=== PATIENT | male | born 2000 | race Caucasian/White ===

== ENCOUNTER 2022-01-13 14:27 | Observation (INO) ==
[2022-01-13 15:48] LABS: Alanine Aminotransferase 26 U/L (7-52); Albumin Globulin Ratio 1.3 (0.9-2); Albumin Level 5.2 gm/dl (3.4-5.0); Alkaline Phosphatase 86 U/L (34-104); Anion Gap 15 (3-11); BUN Creatinine Ratio 14.3 (10-20); Bilirubin,Total 0.7 mg/dl (0.2-1.0); Blood Urea Nitrogen 18 mg/dl (6-23); Calcium 10.6 mg/dl (8.5-10.1); Carbon Dioxide 23 mmol/L (21-32); Chloride 98 mmol/L (98-107); Creatinine Clr Calc Pharmacy 114.7 ml/min; Est GFR (African American) 93.9 ml/min; Glucose 82 mg/dl (70-99(Fasting)); Sodium 136 mmol/L (136-145); Total Protein 9.2 gm/dl (6.0-8.3); Troponin I High Sensitivity 2.9 pg/ml (0-20)
--- NOTE | 2022-01-13 16:05 | XRay Report ---
XR chest 2V PA/lateral HISTORY: Atypical Chest Pain COMPARISON: None. FINDINGS: The lungs are clear. Cardiac silhouette is normal in size. No pleural effusions. No pneumot horax. IMPRESSION: No acute process. ACT 112: Negative or not required by law. Electronically signed by: Rl Mitchell M.D. 01/13/2022 4:04 PM
[2022-01-13 16:17] LABS: Hemoglobin 16.8 g/dl (14.0-18.0); Mean Corpuscular Hemoglobin 30.3 pg (25.0-34.0); Mean Corpuscular Volume 86.5 fL (80.0-100.0); Platelet Count 321 K/uL (130-400); RDW Coefficient of Variation 11.3 % (11.5-14.5); RDW Standard Deviation 35.7 fL (36.4-46.3); Red Blood Count 5.55 M/uL (4.63-6.08)
[2022-01-13] MEDS ORDERED: SODIUM CHLORIDE 0.9% 1000ML 2,000 ML IV ONE (16:20)
--- NOTE | 2022-01-13 16:24 | Emergency Department Note ---
Impression & Plan Tachycardia, Chest pain ED Provider Note NAME: ARIANNE CHAUDHRY AGE: 21 SEX: M : 2000 ARRIVES VIA: Walk-In INFORMANT: Patient ED PROVIDER(S): Jeevan Pierre DO CHIEF COMPLAINT: chest pain HPI: Patient is a 21-year-old male who presents the ER for elevated heart rate. Patient notes that he has had chest tightness which has been present for the past 2 weeks. It is generally after sleeping for a long time but always resolved in the morning. Male has been having constant pain every time he wakes up throughout the day. Today has been constant since 12 as well as yesterday. Denies any shortness of breath arm or jaw pain. No belly pain, nausea, vom iting, or diarrhea. He notes it is a little worse with sitting up in the chair and improves with lying a little bit reclined. Pain is currently a 2 out of 10. He has never had this before. No other exacerbating or remitting factors. Patient denies diabetes, hypertension, hyperlipidemia, CAD, history of sudden at a young age, and smoking. Patient denies swelling of calves, recent trips, history of immobilization or recent surgery, prior history of DVT, hemoptysis, history of malignancy. Family history of an aunt having an IA at the age of 40. Symptoms do improve when he is up and moving around. ROS: See above HPI for pertinent positives & negatives. A total of 10 systems reviewed and were otherwise negative. PAST MEDICAL HISTORY:See Below PAST SURGICAL HISTORY:See Below FAMILY HISTORY:See Below SOCIAL HISTORY:See Below HOME MEDICATIONS:See Below ALLERGIES:See Below VITALS:See Below PHYSICAL EXAMINATION: GENERAL: Sitting up in bed, alert, well appearing, well nourished, no distress, non-toxic EYE EXAM: normal conjunctiva. PERRL and EOM's grossly intact. OROPHARYNX: no exudate, no erythema, lips, buccal mucosa, and tongue normal and mucous membranes are moist NECK: supple, no nuchal rigidity, no adenopathy, non-tender LUNGS: Clear to auscultation. Normal chest wall mechanics HEART: no murmurs, S1 normal and S2 normal ABDOMEN: abdomen soft, non-tender, normo-active bowel sounds, no masses, no rebound or guarding. UPPER EXTREMITIES: upper extremities are grossly normal. LOWER EXTREMITIES: No pitting edema. Calves are equal bilateral NEURO EXAM: Normal sensorium, cranial nerves II-XII grossly intact, normal speech, no gross weakness of arms, no gross weakness of legs. MEDICAL DECISION MAKING: Patient is a 21-year-old male who presents ER for above-stated complaint. He notes chest pain and palpitations that have been present for nearly 24 hours. IV was established blood work was obtained. Labs show a mild leukocytosis of 14 ,000. No significant anemia. INR unremarkable. D-dimer negative. BMP along LFTs bilirubin was unremarkable. TSH was normal. Troponin was negative. COVID was negative. He has no other complaints at this time. No signs or source of infection. Chest x-ray was clean. He was given 2 L of IV fluids. Heart rate stayed persistently in the 1 teens. Patient was updated at bedside. With the persistent tachycardia and symptoms did discuss with the hospitalist for further observation. Triage Nursing notes reviewed. Limited review of prior medical records performed Vital Signs: reviewed and remarkable for tachy Differential diagnosis: Cardiac ischemia, aortic dissection, pulmonary embolism, pneumothorax, pneumonia, pericarditis, myocarditis, esophageal rupture, GERD, cholecystitis, pancreatitis, musculoskeletal, as well as other pathologies. ER treatment provided: See below Diagnostics interpreted by me: ECG: Sinus tachycardia rate of 139 Normal axis No PVCs QTC 429 Cardiac Monitoring: An order was placed for continuous cardiac monitoring. The monitor shows a rate of 120 with sinus rhythm. Laboratory studies: As stated above and show below. Imaging studies: Portable AP upright 1 view of the chest unremarkable Consultation(s): Discussed with Rhonda Whiting for further evaluation Procedures: none Critical Care: None Past Med/Surg History Social History Smoking Status: Never smoker Hx Alcohol Use: No Hx Substance Use: No Preferred Language: Upper Sorbian Communication Ability: Effective Mule Operator Required: No Beliefs That Will Affect Care: None Current Living Situation: Other Current Living Situation Comment: Roommates Feels Safe at Home: Yes Assistive Devices: None Results & Data (ED) Vital Signs Vital Signs - 24 hr 01/13/22 14:49 01/13/22 16:25 01/13/22 16:25 Temperature 37.4 C Temperature Source Temporal Artery Scan Pulse Rate 126 H Pulse Rate [Apical] 128 H Pulse Rhythm Regular Pulse Rhythm [Apical] Pulse Strength Normal Pulse Strength [Apical] Respiratory Rate 18 18 Respiratory Effort / Characteristics Non-Labored Spontaneous Non-Labored Spontaneous Respiratory Depth Normal Normal Respiratory Pattern Regular Regular Blood Pressure 131/82 Blood Pressure [Left Arm] 128/90 Blood Pressure Mean 98 Blood Pressure Mean [Left Arm] 102 Blood Pressure Position Sitting Blood Pressure Position [Left Arm] Semi-fowlers Pulse Oximetry 97 99 99 Oxygen Delivery Method Room Air Room Air Room Air Sepsis Recent Fever Within 48 Hours No Sepsis New/Unexplained Change in Mental Status No Sepsis Action Taken by Nursing No Action Required 01/13/22 17:09 01/13/22 18:06 01/13/22 19:00 Temperature Temperature Source Pulse Rate 116 H Pulse Rate [Apical] 113 H 107 H Pulse Rhythm Pulse Rhythm [Apical] Regular Pulse Strength Pulse Strength [Apical] Normal Respiratory Rate 18 18 18 Respiratory Effort / Characteristics Non-Labored Spontaneous Non-Labored Respiratory Depth Normal Normal Respiratory Pattern Regular Regular Blood Pressure 152/88 H Blood Pressure [Left Arm] 127/88 133/86 Blood Pressure Mean 109 Blood Pressure Mean [Left Arm] 101 101 Blood Pressure Position Blood Pressure Position [Left Arm] Lying Pulse Oximetry 99 100 99 Oxygen Delivery Method Room Air Room Air Room Air Sepsis Recent Fever Within 48 Hours Sepsis New/Unexplained Change in Mental Status Sepsis Action Taken by Nursing Laboratory Data Result diagrams: 01/13/22 16:04 01/13/22 15:59 Lab Results 01/13/22 01/13/22 01/13/22 Range/Units 14:59 14:59 14:59 WBC Cancelled RBC Cancelled Hgb Cancelled Hct Cancelled MCV Cancelled MCH Cancelled MCHC Cancelled RDW Std Deviation Cancelled RDW Coeff of Charlene Cancelled Plt Count Cancelled MPV Cancelled Immature Gran % (Auto) Cancelled Neut % (Auto) Cancelled Lymph % (Auto) Cancelled [place] % (Auto) Cancelled Eos % (Auto) Cancelled Baso % (Auto) Cancelled Neut # (Auto) Cancelled Lymph # (Auto) Cancelled [place] # (Auto) Cancelled Eos # (Auto) Cancelled Baso # (Auto) Cancelled Immature Gran # (Auto) Cancelled Absolute Nucleated RBC Cancelled Nucleated RBC % (auto) Cancelled Neutrophils % (Manual) Cancelled Band Neutrophils % Cancelled Lymphocytes % (Manual) Cancelled Prolymphocyte % Cancelled Reactive Lymphs % (Man) Cancelled Monocytes % (Manual) Cancelled Eosinophils % (Manual) Cancelled Basophils % (Manual) Cancelled Metamyelocytes % (Man) Cancelled Myelocytes % (Man) Cancelled Promyelocytes % (Man) Cancelled Blast Cells % (Manual) Cancelled Plasma Cell % (Manual) Cancelled Other Cells % Cancelled Nucleated RBC % Cancelled Neutrophils # (Manual) Cancelled Band Neutrophils # Cancelled Total Absolute Neuts Cancelled Lymphocytes # (Manual) Cancelled Prolymphocyte # Cancelled Reactive Lymphs # Cancelled Total Abs Lymphocytes Cancelled Monocytes # (Manual) Cancelled Eosinophils # (Manual) Cancelled Basophils # (Manual) Cancelled Metamyelocytes # (Man) Cancelled Myelocytes # (Manual) Cancelled Promyelocytes # (Man) Cancelled Blast Cells # (Man) Cancelled Plasma Cell # (Manual) Cancelled Other Cells # Cancelled Nucleated RBCs # (Man) Cancelled Hypersegmented Neuts Cancelled Hyposegmented Neuts Cancelled Hypogranular Neuts Cancelled Large Granular Lymphs Cancelled # Lrg Granular Lymphs Cancelled Hairy Cells Cancelled Smudge Cells Cancelled Toxic Granulation Cancelled Toxic Vacuolation Cancelled Dohle Bodies Cancelled Pattie Rods Cancelled Platelet Estimate Cancelled Hypogranular Platelets Cancelled Clumped Platelets Cancelled Giant Platelets Cancelled Platelet Satelliting Cancelled RBC Morphology Cancelled Polychromasia Cancelled Hypochromasia Cancelled Poikilocytosis Cancelled Basophilic Stippling Cancelled Anisocytosis Cancelled Microcytosis Cancelled Macrocytosis Cancelled Spherocytes Cancelled Pappenheimer Bodies Cancelled Sickle Cells Cancelled Target Cells Cancelled Tear Drop Cells Cancelled Ovalocytes Cancelled Stomatocytes Cancelled [place] Bodies Cancelled Echinocytes Cancelled Acanthocytes (Spur) Cancelled Rouleaux Cancelled RBC Agglutinates Cancelled Schistocytes Cancelled Sezary Cell Cancelled PT Cancelled INR Cancelled APTT Cancelled PTT Ratio Cancelled D-Dimer Cancelled Sodium 136 (136-145) mmol/L Potassium TNP Chloride 98 (98-107) mmol/L Carbon Dioxide 23 (21-32) mmol/L Anion Gap 15 H (3-11) BUN 18 (6-23) mg/dl Creatinine 1.26 (0.6-1.4) mg/dl Est Cr Clr Drug Dosing 114.7 ml/min Est GFR ( Amer) 93.9 ml/min Est GFR (Non-Af Amer) 81.0 ml/min BUN/Creatinine Ratio 14.3 (10-20) Glucose 82 (70-99(Fasting)) mg/dl Calcium 10.6 H (8.5-10.1) mg/dl Total Bilirubin 0.7 (0.2-1.0) mg/dl AST TNP ALT 26 (7-52) U/L Alkaline Phosphatase 86 (34-104) U/L Troponin I High Sens 2.9 (0-20) pg/ml Total Protein 9.2 H (6.0-8.3) gm/dl Albumin 5.2 H (3.4-5.0) gm/dl Globulin 4.0 (2.5-4.0) gm/dl Albumin/Globulin Ratio 1.3 (0.9-2) TSH (0.300-4.500) uIu/ml SARS-CoV-2, RNA, NAAT (NEGATIVE) Blood Parasites ID Cancelled 01/13/22 01/13/22 01/13/22 Range/Units 15:59 15:59 16:04 WBC 14.60 H RBC 5.55 Hgb 16.8 Hct 48.0 MCV 86.5 MCH 30.3 MCHC 35.0 RDW Std Deviation 35.7 L RDW Coeff of Charlene 11.3 L Plt Count 321 MPV 9.0 L Immature Gran % (Auto) 0.3 Neut % (Auto) 90.4 Lymph % (Auto) 4.4 [place] % (Auto) 4.7 Eos % (Auto) 0.0 Baso % (Auto) 0.2 Neut # (Auto) 13.21 H Lymph # (Auto) 0.64 L [place] # (Auto) 0.68 Eos # (Auto) 0.00 Baso # (Auto) 0.03 Immature Gran # (Auto) 0.04 H Absolute Nucleated RBC Nucleated RBC % (auto) Neutrophils % (Manual) Band Neutrophils % Lymphocytes % (Manual) Prolymphocyte % Reactive Lymphs % (Man) Monocytes % (Manual) Eosinophils % (Manual) Basophils % (Manual) Metamyelocytes % (Man) Myelocytes % (Man) Promyelocytes % (Man) Blast Cells % (Manual) Plasma Cell % (Manual) Other Cells % Nucleated RBC % Neutrophils # (Manual) Band Neutrophils # Total Absolute Neuts Lymphocytes # (Manual) Prolymphocyte # Reactive Lymphs # Total Abs Lymphocytes Monocytes # (Manual) Eosinophils # (Manual) Basophils # (Manual) Metamyelocytes # (Man) Myelocytes # (Manual) Promyelocytes # (Man) Blast Cells # (Man) Plasma Cell # (Manual) Other Cells # Nucleated RBCs # (Man) Hypersegmented Neuts Hyposegmented Neuts Hypogranular Neuts Large Granular Lymphs # Lrg Granular Lymphs Hairy Cells Smudge Cells Toxic Granulation Toxic Vacuolation Dohle Bodies Pattie Rods Platelet Estimate Hypogranular Platelets Clumped Platelets Giant Platelets Platelet Satelliting RBC Morphology Polychromasia Hypochromasia Poikilocytosis Basophilic Stippling Anisocytosis Microcytosis Macrocytosis Spherocytes Pappenheimer Bodies Sickle Cells Target Cells Tear Drop Cells Ovalocytes Stomatocytes [place] Bodies Echinocytes Acanthocytes (Spur) Rouleaux RBC Agglutinates Schistocytes Sezary Cell PT INR APTT PTT Ratio D-Dimer Sodium (136-145) mmol/L Potassium 4.3 Chloride (98-107) mmol/L Carbon Dioxide (21-32) mmol/L Anion Gap (3-11) BUN (6-23) mg/dl Creatinine (0.6-1.4) mg/dl Est Cr Clr Drug Dosing ml/min Est GFR ( Amer) ml/min Est GFR (Non-Af Amer) ml/min BUN/Creatinine Ratio (10-20) Glucose (70-99(Fasting)) mg/dl Calcium (8.5-10.1) mg/dl Total Bilirubin (0.2-1.0) mg/dl AST 20 ALT (7-52) U/L Alkaline Phosphatase (34-104) U/L Troponin I High Sens (0-20) pg/ml Total Protein (6.0-8.3) gm/dl Albumin (3.4-5.0) gm/dl Globulin (2.5-4.0) gm/dl Albumin/Globulin Ratio (0.9-2) TSH 1.830 (0.300-4.500) uIu/ml SARS-CoV-2, RNA, NAAT (NEGATIVE) Blood Parasites ID 01/13/22 01/13/22 01/13/22 Range/Units 16:04 17:40 19:16 WBC RBC Hgb Hct MCV MCH MCHC RDW Std Deviation RDW Coeff of Charlene Plt Count MPV Immature Gran % (Auto) Neut % (Auto) Lymph % (Auto) [place] % (Auto) Eos % (Auto) Baso % (Auto) Neut # (Auto) Lymph # (Auto) [place] # (Auto) Eos # (Auto) Baso # (Auto) Immature Gran # (Auto) Absolute Nucleated RBC Nucleated RBC % (auto) Neutrophils % (Manual) Band Neutrophils % Lymphocytes % (Manual) Prolymphocyte % Reactive Lymphs % (Man) Monocytes % (Manual) Eosinophils % (Manual) Basophils % (Manual) Metamyelocytes % (Man) Myelocytes % (Man) Promyelocytes % (Man) Blast Cells % (Manual) Plasma Cell % (Manual) Other Cells % Nucleated RBC % Neutrophils # (Manual) Band Neutrophils # Total Absolute Neuts Lymphocytes # (Manual) Prolymphocyte # Reactive Lymphs # Total Abs Lymphocytes Monocytes # (Manual) Eosinophils # (Manual) Basophils # (Manual) Metamyelocytes # (Man) Myelocytes # (Manual) Promyelocytes # (Man) Blast Cells # (Man) Plasma Cell # (Manual) Other Cells # Nucleated RBCs # (Man) Hypersegmented Neuts Hyposegmented Neuts Hypogranular Neuts Large Granular Lymphs # Lrg Granular Lymphs Hairy Cells Smudge Cells Toxic Granulation Toxic Vacuolation Dohle Bodies Pattie Rods Platelet Estimate Hypogranular Platelets Clumped Platelets Giant Platelets Platelet Satelliting RBC Morphology Polychromasia Hypochromasia Poikilocytosis Basophilic Stippling Anisocytosis Microcytosis Macrocytosis Spherocytes Pappenheimer Bodies Sickle Cells Target Cells Tear Drop Cells Ovalocytes Stomatocytes [place] Bodies Echinocytes Acanthocytes (Spur) Rouleaux RBC Agglutinates Schistocytes Sezary Cell PT 11.6 INR 1.1 APTT 28.0 PTT Ratio 1.0 D-Dimer < 190 Sodium (136-145) mmol/L Potassium Chloride (98-107) mmol/L Carbon Dioxide (21-32) mmol/L Anion Gap (3-11) BUN (6-23) mg/dl Creatinine (0.6-1.4) mg/dl Est Cr Clr Drug Dosing ml/min Est GFR ( Amer) ml/min Est GFR (Non-Af Amer) ml/min BUN/Creatinine Ratio (10-20) Glucose (70-99(Fasting)) mg/dl Calcium (8.5-10.1) mg/dl Total Bilirubin (0.2-1.0) mg/dl AST ALT (7-52) U/L Alkaline Phosphatase (34-104) U/L Troponin I High Sens 3.4 (0-20) pg/ml Total Protein (6.0-8.3) gm/dl Albumin (3.4-5.0) gm/dl Globulin (2.5-4.0) gm/dl Albumin/Globulin Ratio (0.9-2) TSH (0.300-4.500) uIu/ml SARS-CoV-2, RNA, NAAT NEGATIVE (NEGATIVE) Blood Parasites ID Administered Medications Discontinued Medications Sodium Chloride (Nss 1000ml) 2,000 mls @ 999 mls/hr IV .Q2H1M ONE Stop: 01/13/22 18:20 Last Infusion: 01/13/22 18:41 Dose: 0 mls/hr Documented By: Admin: 01/13/22 16:40 Dose: 999 mls/hr Documented By: AMIE Imaging Data Radiologist's Impression: Chest X-Ray 01/13/22 14:52 XR chest 2V PA/lateral HISTORY: Atypical Chest Pain COMPARISON: None. FINDINGS: The lungs are clear. Cardiac silhouette is normal in size. No pleural effusions. No pneumothorax. IMPRESSION: No acute process. ACT 112: Negative or not required by law. Electronically signed by: Rl Mitchell M.D. 01/13/2022 4:04 PM Discharge Plan Visit Data Chief Complaint: Chest Pain Stated Complaint: CHEST PAIN, HIGH HEART RATE ED Provider: Jeevan Pierre Discharge Problem: Tachycardia, Chest pain Patient Disposition: Admitted As Inpatient Discharge Instructions Interventions: ED Discharge Assessment Last Done: 01/13/22 21:22
[2022-01-13 16:29] LABS: D Dimer < 190 ug/L FEU (0-500); INR 1.1 (0.9-1.1); Prothrombin Time 11.6 Seconds (9.0-12.0)
[2022-01-13 16:34] LABS: Potassium 4.3 mmol/L (3.5-5.1)
[2022-01-13 16:38] LABS: Basophils # (auto) 0.03 K/uL (0-0.2); Basophils % (auto) 0.2 %; Immature Granulocytes # (auto) 0.04 K/uL (0.00-0.02); Immature Granulocytes % (auto) 0.3 %; Lymphocytes # (auto) 0.64 K/uL (1.2-3.4); Lymphocytes % (auto) 4.4 %; Monocytes # (auto) 0.68 K/uL (0.24-0.82); Monocytes % (auto) 4.7 %; Neutrophils # (auto) 13.21 K/uL (1.4-6.5); Neutrophils % (auto) 90.4 %
--- NOTE | 2022-01-13 19:44 | Electrocardiogram Report ---
Test Reason : Blood Pressure : / mmHG Vent. Rate : 139 BPM Atrial Rate : 139 BPM P-R Int : 116 ms QRS Dur : 084 ms QT Int : 282 ms P-R-T Axes : 049 042 022 degrees QTc Int : 429 ms Sinus tachycardia Possible Left atrial enlargement Borderline ECG No previous ECGs available Confirmed by Fredo Nunez ([id number]) on 01/13/2022 7:43:49 PM Referred By: Confirmed By:Emeka Nunez
--- NOTE | 2022-01-13 20:08 | History & Physical Report ---
Date of Service January 13, 2022 Assessment & Plan (1) Tachycardia: Plan: 21yo male with no significant past medical or surgical history presenting with substernal chest discomfort and tachycardia. Etiology uncertain at this time. Suspect anxiety is playing a part. Troponin x 2 unremarkable. EKG with sinus tachycardia. Electrolytes largely normal. TSH WNL. -Observation to medical with telemetry -Check Mg -Continue hydration - LR at 125mL/hr x 2 liters -Check 2D echo -Patient may benefit from outpatient cardiac monitoring History of Present Illness Chief Complaint: tachycardia Primary Care Provider: NO PCP Wili Villalba is a pleasant 21yo male with no significant past medical or surgical history presenting with chest discomfort. He has been having substernal chest pressure and discomfort over the last two weeks. He mostly notices it in the morning after waking and it improves throughout the day. The discomfort has acutely worsened over the last two days. It does not appear to be exertional or positional. No pleuritic component. Patient noted palpitations this morning and had an elevated heart rate in the 140's. He also had some nausea and vomiting as well as diarrhea this AM. He did not have breakfast this AM due to not feeling well. He was seen at Urgent Care and subsequently sent to the ER. In the ER he has been sinus tachycardia, sustained 116 - 140. During my encounter his HR was appx 126. Patient does admit to some anxiety, especially when it comes to potential health issues. He has never taken anything for anxiety. He denies fever but had some chills this morning. He has some mild shortness of breath and a slight cough. He denies recent illness or vaccinations. He does not smoke. He drinks sparingly. No recreational drug use. No supplements or OTC medications. Patient recently discontinued his caffeine use. He was previously drinking 4-5 sodas daily but stopped approximately 4 days ago. He has felt very tired since stopping caffeine. Past Med/Surg History Social History Smoking Status: Never smoker Preferred Language: Greenlandic Feels Safe at Home: Yes Review of Systems Review of Systems: All systems reviewed & are unremarkable except as noted in HPI & below Physical Exam Physical Exam: General: patient resting comfortably, NAD, non-toxic in appearance, AA&O x 4 Skin: warm, dry, intact, no rashes or lesions HEENT: NC/AT, PERRL, EOMI, anicteric sclera, conjunctiva without injection, external ear normal to inspection and nontender, nares patent, moist mucus membranes, dentition intact, no oropharyngeal lesions, neck supple, trachea midline, no LAD, no thyromegaly, no JVD Heart: +S1/S2, regular, tachycardic, no m/r/g Lungs: equal air entry bilaterally, no rales/rhonchi/wheezes Abd: +BS, soft, NT/ND, no masses/organomegaly/ascites Ext: warm, 2+ pulses in UE/LE bilaterally, no clubbing/cyanosis or edema Neuro: nonfocal, patient AA&O x 4, speech intact, no facial droop, moving all extremities on command with equal strength 5/5 Results & Data Results & Data ([facility]) Vital Signs (Past 12 Hours) Vital Signs Temp Pulse Pulse Resp BP BP Pulse Ox 01/13/22 19:00 107 H 18 133/86 99 01/13/22 18:06 116 H 18 152/88 H 100 01/13/22 17:09 113 H 18 127/88 99 01/13/22 16:25 99 01/13/22 16:25 128 H 18 128/90 99 01/13/22 14:49 37.4 C 126 H 18 131/82 97 O2 Del Method 01/13/22 19:00 Room Air 01/13/22 18:06 Room Air 01/13/22 17:09 Room Air 01/13/22 16:25 Room Air 01/13/22 16:25 Room Air 01/13/22 14:49 Room Air Laboratory Results Laboratory Results WBC 14.60 K/ul (4.8-10.8) H 01/13/22 16:04 RBC 5.55 M/uL (4.63-6.08) 01/13/22 16:04 Hgb 16.8 g/dl (14.0-18.0) 01/13/22 16:04 Hct 48.0 % (40.1-51.0) 01/13/22 16:04 MCV 86.5 fL (80.0-100.0) 01/13/22 16:04 MCH 30.3 pg (25.0-34.0) 01/13/22 16:04 MCHC 35.0 g/dL (32.0-36.0) 01/13/22 16:04 RDW Std Deviation 35.7 fL (36.4-46.3) L 01/13/22 16:04 RDW Coeff of Charlene 11.3 % (11.5-14.5) L 01/13/22 16:04 Plt Count 321 K/uL (130-400) 01/13/22 16:04 MPV 9.0 fL (9.4-12.4) L 01/13/22 16:04 Immature Gran % (Auto) 0.3 % 01/13/22 16:04 Neut % (Auto) 90.4 % 01/13/22 16:04 Lymph % (Auto) 4.4 % 01/13/22 16:04 [place] % (Auto) 4.7 % 01/13/22 16:04 Eos % (Auto) 0.0 % 01/13/22 16:04 Baso % (Auto) 0.2 % 01/13/22 16:04 Neut # (Auto) 13.21 K/uL (1.4-6.5) H 01/13/22 16:04 Lymph # (Auto) 0.64 K/uL (1.2-3.4) L 01/13/22 16:04 [place] # (Auto) 0.68 K/uL (0.24-0.82) 01/13/22 16:04 Eos # (Auto) 0.00 K/uL (0-0.50) 01/13/22 16:04 Baso # (Auto) 0.03 K/uL (0-0.2) 01/13/22 16:04 Immature Gran # (Auto) 0.04 K/uL (0.00-0.02) H 01/13/22 16:04 Absolute Nucleated RBC Cancelled 01/13/22 14:59 Nucleated RBC % (auto) Cancelled 01/13/22 14:59 Neutrophils % (Manual) Cancelled 01/13/22 14:59 Band Neutrophils % Cancelled 01/13/22 14:59 Lymphocytes % (Manual) Cancelled 01/13/22 14:59 Prolymphocyte % Cancelled 01/13/22 14:59 Reactive Lymphs % (Man) Cancelled 01/13/22 14:59 Monocytes % (Manual) Cancelled 01/13/22 14:59 Eosinophils % (Manual) Cancelled 01/13/22 14:59 Basophils % (Manual) Cancelled 01/13/22 14:59 Metamyelocytes % (Man) Cancelled 01/13/22 14:59 Myelocytes % (Man) Cancelled 01/13/22 14:59 Promyelocytes % (Man) Cancelled 01/13/22 14:59 Blast Cells % (Manual) Cancelled 01/13/22 14:59 Plasma Cell % (Manual) Cancelled 01/13/22 14:59 Other Cells % Cancelled 01/13/22 14:59 Nucleated RBC % Cancelled 01/13/22 14:59 Neutrophils # (Manual) Cancelled 01/13/22 14:59 Band Neutrophils # Cancelled 01/13/22 14:59 Total Absolute Neuts Cancelled 01/13/22 14:59 Lymphocytes # (Manual) Cancelled 01/13/22 14:59 Prolymphocyte # Cancelled 01/13/22 14:59 Reactive Lymphs # Cancelled 01/13/22 14:59 Total Abs Lymphocytes Cancelled 01/13/22 14:59 Monocytes # (Manual) Cancelled 01/13/22 14:59 Eosinophils # (Manual) Cancelled 01/13/22 14:59 Basophils # (Manual) Cancelled 01/13/22 14:59 Metamyelocytes # (Man) Cancelled 01/13/22 14:59 Myelocytes # (Manual) Cancelled 01/13/22 14:59 Promyelocytes # (Man) Cancelled 01/13/22 14:59 Blast Cells # (Man) Cancelled 01/13/22 14:59 Plasma Cell # (Manual) Cancelled 01/13/22 14:59 Other Cells # Cancelled 01/13/22 14:59 Nucleated RBCs # (Man) Cancelled 01/13/22 14:59 Hypersegmented Neuts Cancelled 01/13/22 14:59 Hyposegmented Neuts Cancelled 01/13/22 14:59 Hypogranular Neuts Cancelled 01/13/22 14:59 Large Granular Lymphs Cancelled 01/13/22 14:59 # Lrg Granular Lymphs Cancelled 01/13/22 14:59 Hairy Cells Cancelled 01/13/22 14:59 Smudge Cells Cancelled 01/13/22 14:59 Toxic Granulation Cancelled 01/13/22 14:59 Toxic Vacuolation Cancelled 01/13/22 14:59 Dohle Bodies Cancelled 01/13/22 14:59 Pattie Rods Cancelled 01/13/22 14:59 Platelet Estimate Cancelled 01/13/22 14:59 Hypogranular Platelets Cancelled 01/13/22 14:59 Clumped Platelets Cancelled 01/13/22 14:59 Giant Platelets Cancelled 01/13/22 14:59 Platelet Satelliting Cancelled 01/13/22 14:59 RBC Morphology Cancelled 01/13/22 14:59 Polychromasia Cancelled 01/13/22 14:59 Hypochromasia Cancelled 01/13/22 14:59 Poikilocytosis Cancelled 01/13/22 14:59 Basophilic Stippling Cancelled 01/13/22 14:59 Anisocytosis Cancelled 01/13/22 14:59 Microcytosis Cancelled 01/13/22 14:59 Macrocytosis Cancelled 01/13/22 14:59 Spherocytes Cancelled 01/13/22 14:59 Pappenheimer Bodies Cancelled 01/13/22 14:59 Sickle Cells Cancelled 01/13/22 14:59 Target Cells Cancelled 01/13/22 14:59 Tear Drop Cells Cancelled 01/13/22 14:59 Ovalocytes Cancelled 01/13/22 14:59 Stomatocytes Cancelled 01/13/22 14:59 [place] Bodies Cancelled 01/13/22 14:59 Echinocytes Cancelled 01/13/22 14:59 Acanthocytes (Spur) Cancelled 01/13/22 14:59 Rouleaux Cancelled 01/13/22 14:59 RBC Agglutinates Cancelled 01/13/22 14:59 Schistocytes Cancelled 01/13/22 14:59 Sezary Cell Cancelled 01/13/22 14:59 PT 11.6 Seconds (9.0-12.0) 01/13/22 16:04 INR 1.1 (0.9-1.1) 01/13/22 16:04 APTT 28.0 Seconds (21.0-31.0) 01/13/22 16:04 PTT Ratio 1.0 01/13/22 16:04 D-Dimer < 190 ug/L FEU (0-500) 01/13/22 16:04 Sodium 136 mmol/L (136-145) 01/13/22 14:59 Potassium 4.3 mmol/L (3.5-5.1) 01/13/22 15:59 Chloride 98 mmol/L (98-107) 01/13/22 14:59 Carbon Dioxide 23 mmol/L (21-32) 01/13/22 14:59 Anion Gap 15 (3-11) H 01/13/22 14:59 BUN 18 mg/dl (6-23) 01/13/22 14:59 Creatinine 1.26 mg/dl (0.6-1.4) 01/13/22 14:59 Est Cr Clr Drug Dosing 114.7 ml/min 01/13/22 14:59 Est GFR ( Amer) 93.9 ml/min 01/13/22 14:59 Est GFR (Non-Af Amer) 81.0 ml/min 01/13/22 14:59 BUN/Creatinine Ratio 14.3 (10-20) 01/13/22 14:59 Glucose 82 mg/dl (70-99(Fasting)) 01/13/22 14:59 Calcium 10.6 mg/dl (8.5-10.1) H 01/13/22 14:59 Total Bilirubin 0.7 mg/dl (0.2-1.0) 01/13/22 14:59 AST 20 U/L (13-39) 01/13/22 15:59 ALT 26 U/L (7-52) 01/13/22 14:59 Alkaline Phosphatase 86 U/L (34-104) 01/13/22 14:59 Troponin I High Sens 3.4 pg/ml (0-20) 01/13/22 17:40 Total Protein 9.2 gm/dl (6.0-8.3) H 01/13/22 14:59 Albumin 5.2 gm/dl (3.4-5.0) H 01/13/22 14:59 Globulin 4.0 gm/dl (2.5-4.0) 01/13/22 14:59 Albumin/Globulin Ratio 1.3 (0.9-2) 01/13/22 14:59 TSH 1.830 uIu/ml (0.300-4.500) 01/13/22 15:59 SARS-CoV-2, RNA, NAAT NEGATIVE (NEGATIVE) 01/13/22 19:16 Blood Parasites ID Cancelled 01/13/22 14:59 Impressions Chest X-Ray 01/13/22 14:52 XR chest 2V PA/lateral HISTORY: Atypical Chest Pain COMPARISON: None. FINDINGS: The lungs are clear. Cardiac silhouette is normal in size. No pleural effusions. No pneumothorax. IMPRESSION: No acute process. ACT 112: Negative or not required by law. Electronically signed by: Rl Mitchell M.D. 01/13/2022 4:04 PM PG Care Time/CCT Total # of Minutes Spent Total Time Spent with Patient: Total time spent is greater than 50% in coordination of care (as documented) at patient's floor/unit and/or counseling patient: Coding Level of Care Code INT OBSERVATION CARE 50M LVL 2 Diagnoses Tachycardia R00.0
[2022-01-13] MEDS ORDERED: ONDANSETRON INJ 2 MG/ML 2 ML VIAL IV PRN (22:04)
[2022-01-13] MEDS ORDERED: ACETAMINOPHEN 325 MG TAB PO PRN (22:04)
[2022-01-13] MEDS: LACTATED RINGER'S 1,000 ML IV SCH (23:00)
[2022-01-14] MEDS: LACTATED RINGER'S 1,000 ML IV SCH (06:18)
[2022-01-14 07:51] LABS: Hematocrit (blood only) 39.9 % (40.1-51.0); Hemoglobin 14.1 g/dl (14.0-18.0); Mean Corpuscular Hemoglobin 30.3 pg (25.0-34.0); Mean Corpuscular Hgb Conc 35.3 g/dL (32.0-36.0); Mean Corpuscular Volume 85.6 fL (80.0-100.0); Mean Platelet Volume 9.4 fL (9.4-12.4); Platelet Count 232 K/uL (130-400); RDW Coefficient of Variation 11.4 % (11.5-14.5); RDW Standard Deviation 35.4 fL (36.4-46.3); Red Blood Count 4.66 M/uL (4.63-6.08); White Blood Count 8.21 K/ul (4.8-10.8)
[2022-01-14 08:26] LABS: Albumin Level 4.3 gm/dl (3.4-5.0); BUN Creatinine Ratio 13.3 (10-20); Bilirubin Direct 0.2 mg/dl (0-0.2); Bilirubin,Total 0.9 mg/dl (0.2-1.0); Calcium 9.2 mg/dl (8.5-10.1); Creatinine Clr Calc Pharmacy 148.9 ml/min; Est GFR (African American) 127.2 ml/min; Est GFR (Non-African American) 109.8 ml/min; Potassium 3.6 mmol/L (3.5-5.1); Total Protein 7.2 gm/dl (6.0-8.3)
--- NOTE | 2022-01-14 13:29 | XCELERA ---
[id number]
--- NOTE | 2022-01-14 14:33 | Cardiology Consultation ---
Date of Consultation January 14, 2022 Assessment & Plan (1) Sinus tachycardia: (2) Chest pain: Plan 1. Sinus tachycardia: Likely reactive. No structural heart disease with preserved LV systolic function. Is not appear to have significant hypovolemia or anemia. Thyroid function was normal. He admits to being quite anxious. He was concerned about Lyme disease and we can screen him for Lyme disease. He does not report symptoms characteristic of a pheochromocytoma, but we can obtain a 24 hour urine collection for catecholamines and metanephrines. Otherwise, no specific treatment other than reassurance. He will follow up with his primary care physician for re-evaluation in a few weeks. 2. Atypical chest pain: This is not appear to be exertional. It is fairly random in improved with changes in position. Somewhat pleuritic as well. He is not seem to be significantly uncomfortable and simply had some concerns about the implications of chest pain. I provided reassurance in this regard. History of Present Illness Reason for Consultation: Tachycardia Requesting Physician: Shady Attending Physician: Naldo Caruso History of Present Illness The patient is a 21-year-old gentleman without a known history of cardiac disease presented to the emergency room yesterday over concerns tachycardia. Patient states that for several days he has not been feeling well. He has felt more tired recently. He did give of caffeine few days prior to admission. He was concerned about his overall health and decided to change his diet and caffeine intake. He did admit to recent anxiety, more than usual. He took his pulse at home and felt that the heart rate was elevated. He had also been experiencing some symptoms of atypical chest pain. The symptoms often involve the left side of his chest and epigastrium. The chest pain itself was somewhat pleuritic in nature and positional. He was not exclusively associated with activity. The episodes themselves were fairly brief in duration. He presented to the emergency room for evaluation. He was discovered to be in a sinus tachycardia. He was admitted for observation. Currently the patient claims to be feeling well. He has not had significant chest discomfort in the hospital. He has been ambulatory around his room. He does notice his heart rate increases when he speaks with the doctors or the nurses come to evaluate him. He did not describe dizziness or lightheadedness. He does not have a history of syncope. Allergies Allergy/AdvReac Type Severity Reaction Status Date / Time No Known Allergies Allergy Verified 01/13/22 22:37 Patient History Social History Smoking Status: Never smoker Hx Alcohol Use: No Hx Substance Use: No Preferred Language: Kazakh Communication Ability: Effective [place] Required: No Beliefs That Will Affect Care: None Current Living Situation: Other Current Living Situation Comment: Roommates Feels Safe at Home: Yes Assistive Devices: None Review of Systems Review of Systems: Per HPI Physical Exam Physical Exam: The patient is alert and oriented. Mood and affect appeared normal. He answered all questions appropriately. HEENT: Pupils are equal and reactive to light and accommodation. Extraocular movements are intact. The sclerae are anicteric. Neuro: Cranial nerves intact Lungs: Clear to auscultation bilaterally. He has good air movement without use of accessory muscles. No rales wheezes or rhonchi. Cardiac: Heart demonstrates a regular rate and rhythm. Normal S1 and S2. No murmurs on examination. Pulses: The patient has palpable radial pulses bilaterally that are equal in intensity Extremities: There was no evidence of hypoperfusion. There is no cyanosis or clubbing. There is no edema. Skin: Crusty rash noted on the left knee and left tibial area. Results & Data ([facility]) Vital Signs (Past 12 Hours) Vital Signs Temp Pulse Pulse Resp BP Pulse Ox O2 Del Method 01/14/22 12:29 36.8 C 107 H 20 137/84 99 Room Air 01/14/22 06:03 97 H 01/14/22 07:51 36.6 C 102 H 16 145/87 H 100 Room Air 01/14/22 04:49 36.6 C 118 H 18 125/70 99 Room Air Laboratory Results Abnormal Lab Results 01/13/22 01/13/22 01/13/22 14:59 14:59 14:59 WBC Cancelled RBC Cancelled Hgb Cancelled Hct Cancelled MCV Cancelled MCH Cancelled MCHC Cancelled RDW Std Deviation Cancelled RDW Coeff of Charlene Cancelled Plt Count Cancelled MPV Cancelled Immature Gran % (Auto) Cancelled Neut % (Auto) Cancelled Lymph % (Auto) Cancelled [place] % (Auto) Cancelled Eos % (Auto) Cancelled Baso % (Auto) Cancelled Neut # (Auto) Cancelled Lymph # (Auto) Cancelled [place] # (Auto) Cancelled Eos # (Auto) Cancelled Baso # (Auto) Cancelled Immature Gran # (Auto) Cancelled Absolute Nucleated RBC Cancelled Nucleated RBC % (auto) Cancelled Neutrophils % (Manual) Cancelled Band Neutrophils % Cancelled Lymphocytes % (Manual) Cancelled Prolymphocyte % Cancelled Reactive Lymphs % (Man) Cancelled Monocytes % (Manual) Cancelled Eosinophils % (Manual) Cancelled Basophils % (Manual) Cancelled Metamyelocytes % (Man) Cancelled Myelocytes % (Man) Cancelled Promyelocytes % (Man) Cancelled Blast Cells % (Manual) Cancelled Plasma Cell % (Manual) Cancelled Other Cells % Cancelled Nucleated RBC % Cancelled Neutrophils # (Manual) Cancelled Band Neutrophils # Cancelled Total Absolute Neuts Cancelled Lymphocytes # (Manual) Cancelled Prolymphocyte # Cancelled Reactive Lymphs # Cancelled Total Abs Lymphocytes Cancelled Monocytes # (Manual) Cancelled Eosinophils # (Manual) Cancelled Basophils # (Manual) Cancelled Metamyelocytes # (Man) Cancelled Myelocytes # (Manual) Cancelled Promyelocytes # (Man) Cancelled Blast Cells # (Man) Cancelled Plasma Cell # (Manual) Cancelled Other Cells # Cancelled Nucleated RBCs # (Man) Cancelled Hypersegmented Neuts Cancelled Hyposegmented Neuts Cancelled Hypogranular Neuts Cancelled Large Granular Lymphs Cancelled # Lrg Granular Lymphs Cancelled Hairy Cells Cancelled Smudge Cells Cancelled Toxic Granulation Cancelled Toxic Vacuolation Cancelled Dohle Bodies Cancelled Pattie Rods Cancelled Platelet Estimate Cancelled Hypogranular Platelets Cancelled Clumped Platelets Cancelled Giant Platelets Cancelled Platelet Satelliting Cancelled RBC Morphology Cancelled Polychromasia Cancelled Hypochromasia Cancelled Poikilocytosis Cancelled Basophilic Stippling Cancelled Anisocytosis Cancelled Microcytosis Cancelled Macrocytosis Cancelled Spherocytes Cancelled Pappenheimer Bodies Cancelled Sickle Cells Cancelled Target Cells Cancelled Tear Drop Cells Cancelled Ovalocytes Cancelled Stomatocytes Cancelled [place] Bodies Cancelled Echinocytes Cancelled Acanthocytes (Spur) Cancelled Rouleaux Cancelled RBC Agglutinates Cancelled Schistocytes Cancelled Sezary Cell Cancelled PT Cancelled INR Cancelled APTT Cancelled PTT Ratio Cancelled D-Dimer Cancelled Sodium 136 Potassium TNP Chloride 98 Carbon Dioxide 23 Anion Gap 15 H BUN 18 Creatinine 1.26 Est Cr Clr Drug Dosing 114.7 Est GFR ( Amer) 93.9 Est GFR (Non-Af Amer) 81.0 BUN/Creatinine Ratio 14.3 Glucose 82 Calcium 10.6 H Ionized Calcium Magnesium Total Bilirubin 0.7 Direct Bilirubin AST TNP ALT 26 Alkaline Phosphatase 86 Total Creatine Kinase Troponin I High Sens 2.9 Total Protein 9.2 H Albumin 5.2 H Globulin 4.0 Albumin/Globulin Ratio 1.3 TSH SARS-CoV-2, RNA, NAAT Blood Parasites ID Cancelled 01/13/22 01/13/22 01/13/22 15:59 15:59 15:59 WBC RBC Hgb Hct MCV MCH MCHC RDW Std Deviation RDW Coeff of Charlene Plt Count MPV Immature Gran % (Auto) Neut % (Auto) Lymph % (Auto) [place] % (Auto) Eos % (Auto) Baso % (Auto) Neut # (Auto) Lymph # (Auto) [place] # (Auto) Eos # (Auto) Baso # (Auto) Immature Gran # (Auto) Absolute Nucleated RBC Nucleated RBC % (auto) Neutrophils % (Manual) Band Neutrophils % Lymphocytes % (Manual) Prolymphocyte % Reactive Lymphs % (Man) Monocytes % (Manual) Eosinophils % (Manual) Basophils % (Manual) Metamyelocytes % (Man) Myelocytes % (Man) Promyelocytes % (Man) Blast Cells % (Manual) Plasma Cell % (Manual) Other Cells % Nucleated RBC % Neutrophils # (Manual) Band Neutrophils # Total Absolute Neuts Lymphocytes # (Manual) Prolymphocyte # Reactive Lymphs # Total Abs Lymphocytes Monocytes # (Manual) Eosinophils # (Manual) Basophils # (Manual) Metamyelocytes # (Man) Myelocytes # (Manual) Promyelocytes # (Man) Blast Cells # (Man) Plasma Cell # (Manual) Other Cells # Nucleated RBCs # (Man) Hypersegmented Neuts Hyposegmented Neuts Hypogranular Neuts Large Granular Lymphs # Lrg Granular Lymphs Hairy Cells Smudge Cells Toxic Granulation Toxic Vacuolation Dohle Bodies Pattie Rods Platelet Estimate Hypogranular Platelets Clumped Platelets Giant Platelets Platelet Satelliting RBC Morphology Polychromasia Hypochromasia Poikilocytosis Basophilic Stippling Anisocytosis Microcytosis Macrocytosis Spherocytes Pappenheimer Bodies Sickle Cells Target Cells Tear Drop Cells Ovalocytes Stomatocytes [place] Bodies Echinocytes Acanthocytes (Spur) Rouleaux RBC Agglutinates Schistocytes Sezary Cell PT INR APTT PTT Ratio D-Dimer Sodium Potassium 4.3 Chloride Carbon Dioxide Anion Gap BUN Creatinine Est Cr Clr Drug Dosing Est GFR ( Amer) Est GFR (Non-Af Amer) BUN/Creatinine Ratio Glucose Calcium Ionized Calcium Magnesium 2.0 Total Bilirubin Direct Bilirubin AST 20 ALT Alkaline Phosphatase Total Creatine Kinase Troponin I High Sens Total Protein Albumin Globulin Albumin/Globulin Ratio TSH 1.830 SARS-CoV-2, RNA, NAAT Blood Parasites ID 01/13/22 01/13/22 01/13/22 16:04 16:04 17:40 WBC 14.60 H RBC 5.55 Hgb 16.8 Hct 48.0 MCV 86.5 MCH 30.3 MCHC 35.0 RDW Std Deviation 35.7 L RDW Coeff of Charlene 11.3 L Plt Count 321 MPV 9.0 L Immature Gran % (Auto) 0.3 Neut % (Auto) 90.4 Lymph % (Auto) 4.4 [place] % (Auto) 4.7 Eos % (Auto) 0.0 Baso % (Auto) 0.2 Neut # (Auto) 13.21 H Lymph # (Auto) 0.64 L [place] # (Auto) 0.68 Eos # (Auto) 0.00 Baso # (Auto) 0.03 Immature Gran # (Auto) 0.04 H Absolute Nucleated RBC Nucleated RBC % (auto) Neutrophils % (Manual) Band Neutrophils % Lymphocytes % (Manual) Prolymphocyte % Reactive Lymphs % (Man) Monocytes % (Manual) Eosinophils % (Manual) Basophils % (Manual) Metamyelocytes % (Man) Myelocytes % (Man) Promyelocytes % (Man) Blast Cells % (Manual) Plasma Cell % (Manual) Other Cells % Nucleated RBC % Neutrophils # (Manual) Band Neutrophils # Total Absolute Neuts Lymphocytes # (Manual) Prolymphocyte # Reactive Lymphs # Total Abs Lymphocytes Monocytes # (Manual) Eosinophils # (Manual) Basophils # (Manual) Metamyelocytes # (Man) Myelocytes # (Manual) Promyelocytes # (Man) Blast Cells # (Man) Plasma Cell # (Manual) Other Cells # Nucleated RBCs # (Man) Hypersegmented Neuts Hyposegmented Neuts Hypogranular Neuts Large Granular Lymphs # Lrg Granular Lymphs Hairy Cells Smudge Cells Toxic Granulation Toxic Vacuolation Dohle Bodies Pattie Rods Platelet Estimate Hypogranular Platelets Clumped Platelets Giant Platelets Platelet Satelliting RBC Morphology Polychromasia Hypochromasia Poikilocytosis Basophilic Stippling Anisocytosis Microcytosis Macrocytosis Spherocytes Pappenheimer Bodies Sickle Cells Target Cells Tear Drop Cells Ovalocytes Stomatocytes [place] Bodies Echinocytes Acanthocytes (Spur) Rouleaux RBC Agglutinates Schistocytes Sezary Cell PT 11.6 INR 1.1 APTT 28.0 PTT Ratio 1.0 D-Dimer < 190 Sodium Potassium Chloride Carbon Dioxide Anion Gap BUN Creatinine Est Cr Clr Drug Dosing Est GFR ( Amer) Est GFR (Non-Af Amer) BUN/Creatinine Ratio Glucose Calcium Ionized Calcium Magnesium Total Bilirubin Direct Bilirubin AST ALT Alkaline Phosphatase Total Creatine Kinase Troponin I High Sens 3.4 Total Protein Albumin Globulin Albumin/Globulin Ratio TSH SARS-CoV-2, RNA, NAAT Blood Parasites ID 01/13/22 01/14/22 01/14/22 19:16 07:11 07:11 WBC 8.21 RBC 4.66 Hgb 14.1 Hct 39.9 L MCV 85.6 MCH 30.3 MCHC 35.3 RDW Std Deviation 35.4 L RDW Coeff of Charlene 11.4 L Plt Count 232 MPV 9.4 Immature Gran % (Auto) Neut % (Auto) Lymph % (Auto) [place] % (Auto) Eos % (Auto) Baso % (Auto) Neut # (Auto) Lymph # (Auto) [place] # (Auto) Eos # (Auto) Baso # (Auto) Immature Gran # (Auto) Absolute Nucleated RBC Nucleated RBC % (auto) Neutrophils % (Manual) Band Neutrophils % Lymphocytes % (Manual) Prolymphocyte % Reactive Lymphs % (Man) Monocytes % (Manual) Eosinophils % (Manual) Basophils % (Manual) Metamyelocytes % (Man) Myelocytes % (Man) Promyelocytes % (Man) Blast Cells % (Manual) Plasma Cell % (Manual) Other Cells % Nucleated RBC % Neutrophils # (Manual) Band Neutrophils # Total Absolute Neuts Lymphocytes # (Manual) Prolymphocyte # Reactive Lymphs # Total Abs Lymphocytes Monocytes # (Manual) Eosinophils # (Manual) Basophils # (Manual) Metamyelocytes # (Man) Myelocytes # (Manual) Promyelocytes # (Man) Blast Cells # (Man) Plasma Cell # (Manual) Other Cells # Nucleated RBCs # (Man) Hypersegmented Neuts Hyposegmented Neuts Hypogranular Neuts Large Granular Lymphs # Lrg Granular Lymphs Hairy Cells Smudge Cells Toxic Granulation Toxic Vacuolation Dohle Bodies Pattie Rods Platelet Estimate Hypogranular Platelets Clumped Platelets Giant Platelets Platelet Satelliting RBC Morphology Polychromasia Hypochromasia Poikilocytosis Basophilic Stippling Anisocytosis Microcytosis Macrocytosis Spherocytes Pappenheimer Bodies Sickle Cells Target Cells Tear Drop Cells Ovalocytes Stomatocytes [place] Bodies Echinocytes Acanthocytes (Spur) Rouleaux RBC Agglutinates Schistocytes Sezary Cell PT INR APTT PTT Ratio D-Dimer Sodium 138 Potassium 3.6 Chloride 103 Carbon Dioxide 23 Anion Gap 12 H BUN 13 Creatinine 0.98 Est Cr Clr Drug Dosing 148.9 Est GFR ( Amer) 127.2 Est GFR (Non-Af Amer) 109.8 BUN/Creatinine Ratio 13.3 Glucose 68 L Calcium 9.2 Ionized Calcium Magnesium Total Bilirubin 0.9 Direct Bilirubin 0.2 AST 14 ALT 17 Alkaline Phosphatase 68 Total Creatine Kinase 66 Troponin I High Sens Total Protein 7.2 D Albumin 4.3 Globulin Albumin/Globulin Ratio TSH SARS-CoV-2, RNA, NAAT NEGATIVE Blood Parasites ID 01/14/22 07:11 WBC RBC Hgb Hct MCV MCH MCHC RDW Std Deviation RDW Coeff of Charlene Plt Count MPV Immature Gran % (Auto) Neut % (Auto) Lymph % (Auto) [place] % (Auto) Eos % (Auto) Baso % (Auto) Neut # (Auto) Lymph # (Auto) [place] # (Auto) Eos # (Auto) Baso # (Auto) Immature Gran # (Auto) Absolute Nucleated RBC Nucleated RBC % (auto) Neutrophils % (Manual) Band Neutrophils % Lymphocytes % (Manual) Prolymphocyte % Reactive Lymphs % (Man) Monocytes % (Manual) Eosinophils % (Manual) Basophils % (Manual) Metamyelocytes % (Man) Myelocytes % (Man) Promyelocytes % (Man) Blast Cells % (Manual) Plasma Cell % (Manual) Other Cells % Nucleated RBC % Neutrophils # (Manual) Band Neutrophils # Total Absolute Neuts Lymphocytes # (Manual) Prolymphocyte # Reactive Lymphs # Total Abs Lymphocytes Monocytes # (Manual) Eosinophils # (Manual) Basophils # (Manual) Metamyelocytes # (Man) Myelocytes # (Manual) Promyelocytes # (Man) Blast Cells # (Man) Plasma Cell # (Manual) Other Cells # Nucleated RBCs # (Man) Hypersegmented Neuts Hyposegmented Neuts Hypogranular Neuts Large Granular Lymphs # Lrg Granular Lymphs Hairy Cells Smudge Cells Toxic Granulation Toxic Vacuolation Dohle Bodies Pattie Rods Platelet Estimate Hypogranular Platelets Clumped Platelets Giant Platelets Platelet Satelliting RBC Morphology Polychromasia Hypochromasia Poikilocytosis Basophilic Stippling Anisocytosis Microcytosis Macrocytosis Spherocytes Pappenheimer Bodies Sickle Cells Target Cells Tear Drop Cells Ovalocytes Stomatocytes [place] Bodies Echinocytes Acanthocytes (Spur) Rouleaux RBC Agglutinates Schistocytes Sezary Cell PT INR APTT PTT Ratio D-Dimer Sodium Potassium Chloride Carbon Dioxide Anion Gap BUN Creatinine Est Cr Clr Drug Dosing Est GFR ( Amer) Est GFR (Non-Af Amer) BUN/Creatinine Ratio Glucose Calcium Ionized Calcium 1.16 Magnesium Total Bilirubin Direct Bilirubin AST ALT Alkaline Phosphatase Total Creatine Kinase Troponin I High Sens Total Protein Albumin Globulin Albumin/Globulin Ratio TSH SARS-CoV-2, RNA, NAAT Blood Parasites ID Diagnostic Findings Chest x-ray obtained the time admission did not reveal any acute cardiopulmonary process Echocardiogram demonstrated preserved LV systolic function without valvular heart disease ECG Additional Comments: EKG demonstrated sinus tachycardia. PG Care Time/CCT Total # of Minutes Spent Total Time Spent with Patient: Total time spent is greater than 50% in coordination of care (as documented) at patient's floor/unit and/or counseling patient: Coding Level of Care Code 79305 Office/OBS Consult Lvl 4 Diagnoses Sinus tachycardia R00.0 Chest pain R07.9
[2022-01-14 16:47] LABS: Base Excess VBG 4.2 mEq/L; HCO3 VBG 29 mmol/L; Oxygen Saturation VBG < 60.0 %; PCO2 VBG 44 mmHg (38-50); PO2 VBG 31 mmHg; pH VBG 7.43 (7.36-7.41)
[2022-01-14 16:59] LABS: Basophils # (auto) 0.03 K/uL (0-0.2); Basophils % (auto) 0.4 %; Eosinophils # (auto) 0.02 K/uL (0-0.50); Eosinophils % (auto) 0.3 %; Hemoglobin 14.5 g/dl (14.0-18.0); Immature Granulocytes # (auto) 0.01 K/uL (0.00-0.02); Immature Granulocytes % (auto) 0.1 %; Lymphocytes # (auto) 1.64 K/uL (1.2-3.4); Lymphocytes % (auto) 23.8 %; Mean Corpuscular Hemoglobin 30.7 pg (25.0-34.0); Mean Corpuscular Hgb Conc 35.4 g/dL (32.0-36.0); Mean Corpuscular Volume 86.7 fL (80.0-100.0); Monocytes # (auto) 0.73 K/uL (0.24-0.82); Monocytes % (auto) 10.6 %; Neutrophils # (auto) 4.47 K/uL (1.4-6.5); Neutrophils % (auto) 64.8 %; Platelet Count 248 K/uL (130-400); RDW Coefficient of Variation 11.3 % (11.5-14.5); RDW Standard Deviation 35.6 fL (36.4-46.3); Red Blood Count 4.73 M/uL (4.63-6.08)
[2022-01-14 17:16] LABS: Albumin Globulin Ratio 1.4 (0.9-2); Albumin Level 4.4 gm/dl (3.4-5.0); BUN Creatinine Ratio 10.5 (10-20); Bilirubin,Total 0.7 mg/dl (0.2-1.0); C Reactive Protein 1.47 mg/dl (0-0.5); Calcium 9.4 mg/dl (8.5-10.1); Creatinine Clr Calc Pharmacy 153.6 ml/min; Est GFR (African American) 132.1 ml/min; Globulin 3.2 gm/dl (2.5-4.0); Potassium 3.8 mmol/L (3.5-5.1); Total Protein 7.6 gm/dl (6.0-8.3)
[2022-01-14] MEDS ORDERED: LACTATED RINGER'S 1,000 ML IV ONE (18:12)
[2022-01-14 19:08] LABS: Adenovirus PCR Not Detected (NotDetected); Bordetella parapertussis PCR Not Detected (NotDetected); Bordetella pertussis PCR Not Detected (NotDetected); Chlamydia pneumoniae PCR Not Detected (NotDetected); Coronavirus 229E PCR Not Detected (NotDetected); Coronavirus CoV-2 (COVID19)PCR Not Detected (NotDetected); Coronavirus HKU1 PCR Not Detected (NotDetected); Coronavirus NL63 PCR Not Detected (NotDetected); Coronavirus OC43PCR Not Detected (NotDetected); Human Metapneumovirus PCR Not Detected (NotDetected); Influenza A PCR Not Detected (NotDetected); Influenza B PCR Not Detected (NotDetected); Mycoplasma pneumoniae PCR Not Detected (NotDetected); Parainfluenza Virus 1 PCR Not Detected (NotDetected); Parainfluenza Virus 2 PCR Not Detected (NotDetected); Parainfluenza Virus 3 PCR Not Detected (NotDetected); Parainfluenza Virus 4 PCR Not Detected (NotDetected); Respiratory Syncytial VirusPCR Not Detected (NotDetected); Rhinovirus/Enterovirus PCR Not Detected (NotDetected)
[2022-01-20 16:38] LABS: Creatinine, Random Urine 102 mg/dL (20-320); Total Metanephrine 255 mcg/g cr (156-442)
== END 2022-01-14 20:15 | disposition home or self-care (01) ==
LOC: 2N 14:27 → ED 14:27 → SUATTDRO 20:07 → 2N 21:22